=== PATIENT | female | born 2005 | race Caucasian/White ===

== ENCOUNTER → 2024-03-11 | Outpatient (CLI) | payer BC, OTHER, SELFPAY ==
[2024-03-11 16:53] LABS: Basophils % (Auto) 0 % (0-2.5); Eosinophils # (Auto) 0.2 Thou/mm3 (0.0-0.5); Eosinophils % (Auto) 2 % (0-10); Hematocrit 32.2 % (36.0-46.0); Hemoglobin 10.7 g/dL (12.0-16.0); Immature Granulocytes % (Auto) 2 % (0-0); Immature Granulocytes Auto 0.13 Thou/mm3 (0.00-0.00); Lymphocytes # (Auto) 1.6 Thou/mm3 (1.0-5.0); Lymphocytes % (Auto) 18 % (10-50); Mean Corpuscular HGB Conc 33.2 g/dl (31.0-37.0); Mean Corpuscular Hemoglobin 29.6 pg (25.0-35.0); Mean Corpuscular Volume 89 fL (80-100); Monocytes # (Auto) 0.5 Thou/mm3 (0.0-0.8); Monocytes % (Auto) 6 % (0-12); Neutrophils # (Auto) 6.4 Thou/mm3 (1.8-7.7); Neutrophils % (Auto) 72 % (37-80); Nucleated Red Blood Cell % 0 /100 WBC (0); Platelet Count 250 Thou/mm3 (140-440); RDW Standard Deviation 40.1 fL (36.4-46.3); Red Blood Count 3.61 Miln/mm3 (4.00-5.20); White Blood Count 8.9 Thou/mm3 (4.5-11.0)
[2024-03-11 17:22] LABS: Syphilis Nonreactive (Nonreactive)
== END | disposition home or self-care (01) ==
LOC: COPL 15:59
PROVIDERS: PCP Nurse Practitioner Family; Referring Provider Specialist; Visit Provider Specialist
DX: Z34.83 Encounter for supervision of other normal pregnancy, third trimester (principal)
CPT/HCPCS: 36415; 85025; 86780

== ENCOUNTER 2024-04-14 08:50 | Inpatient (IN) | payer OTHER, BC, SELFPAY ==
--- NOTE | 2024-04-09 09:02 | ESHP_ITS ---
RE: PAUL LAGUERRE : 2005 DATE OF ADMISSION: 04/14/2023 HISTORY OF PRESENT ILLNESS: This is a 18-year-old 1, para 0 with a due date of 04/19/2024 with intrauterine at 39 weeks and 2 days on 04/14/2024, who is admitted for induction of labor for gestational hypertension The patient began developing elevated blood pressures on 04/02/2024 and 24-hour urine collection showed 121 mg of protein consistent consistent with gestational HTN. The patient denies any headache, change in vision, or right upper quadrant pain. Her blood work is within normal limits. She reports normal movement. She denies any leaking or bleeding. She reports occasional contractions. Her was complicated by iron deficiency anemia. US today shows EFW 3500g. PAST MEDICAL HISTORY: Iron deficiency anemia. MEDICATIONS: 1. multivitamin 1 p.o. daily. 2. Ferrous sulfate 325 mg one p.o. b.i.d. SOCIAL HISTORY: She denies any alcohol, drug use, or smoking. FAMILY HISTORY: Denies. PAST SURGICAL HISTORY: Denies. REVIEW OF SYSTEMS: She denies any chest pain, palpitations, cough, fever, shortness of breath, or lower extremity pain. PHYSICAL EXAMINATION: VITAL SIGNS: Blood pressure 139/71, heart rate 78, respirations 18, temperature 98.2, weight 183 pounds. HEENT: Oropharynx and sclerae are clear. LUNGS: Clear to auscultation bilaterally. HEART: Regular rate and rhythm. ABDOMEN: Gravid, term size consistent with estimated weight 7.5 pounds. PELVIC: See RN notes. EXTREMITIES: Nontender. SKIN: No gross rashes or lesion. NEUROLOGIC: No focal deficits. ASSESSMENT AND PLAN: Intrauterine at 39 weeks and 2 days, gestational hypertension Induction of labor. Anticipate spontaneous vaginal delivery. Informed consent was obtained. The patient was made aware of the risks, complications, alternatives, and benefits of the proposed procedure and she agrees. She is aware of the risk of operative, vaginal delivery, and delivery and agrees with these modes of delivery if indicated. DT: 14:59:43 TT: 17:22:00 Ref: [id number] - TID: [id number] [facility]
[2024-04-14] VITALS (76 sets, daily range): BP systolic 0–139; BP diastolic 0–89; PULSE 69–194; RESP 16–18; TEMP 36.5–36.8; O2SAT 86–100; BMI 31.8
[2024-04-14 09:57] LABS: Collection Type, Urine Clean Catch
[2024-04-14 10:04] LABS: Basophils % (Auto) 0 % (0-2.5); Eosinophils # (Auto) 0.1 Thou/mm3 (0.0-0.5); Eosinophils % (Auto) 1 % (0-10); Hematocrit 30.3 % (36.0-46.0); Hemoglobin 10.2 g/dL (12.0-16.0); Immature Granulocytes % (Auto) 1 % (0-0); Immature Granulocytes Auto 0.08 Thou/mm3 (0.00-0.00); Lymphocytes # (Auto) 2.1 Thou/mm3 (1.0-5.0); Lymphocytes % (Auto) 25 % (10-50); Mean Corpuscular HGB Conc 33.7 g/dl (31.0-37.0); Mean Corpuscular Volume 86 fL (80-100); Monocytes # (Auto) 0.7 Thou/mm3 (0.0-0.8); Monocytes % (Auto) 8 % (0-12); Neutrophils # (Auto) 5.3 Thou/mm3 (1.8-7.7); Neutrophils % (Auto) 64 % (37-80); Nucleated Red Blood Cell % 0 /100 WBC (0); Platelet Count 289 Thou/mm3 (140-440); RDW Standard Deviation 39.6 fL (36.4-46.3); Red Blood Count 3.52 Miln/mm3 (4.00-5.20); White Blood Count 8.4 Thou/mm3 (4.5-11.0)
[2024-04-14 10:11] LABS: Bacteria,Urine Rare; Bilirubin,Urine Negative (Negative); Blood,Urine 1+ (Negative); Clarity,Urine Clear (Clear/Hazy); Color,Urine Lt-Yellow (Lt Yel-Yel); Glucose, Urine Negative (Negative); Ketones,Urine Negative (Negative); Leukocyte Esterase,Urine Negative (Negative); Nitrite,Urine Negative (Negative); PH,Urine 6.5 (5.0-7.0); Protein,Urine Trace (Neg - Trace); RBC,Urine 3 /hpf (0-3); Specific Gravity,Urine 1.022 (1.001-1.035); Squamous Epithelial Cell,Urine 5 /hpf (0-5); Urobilinogen,Urine Negative mg/dL (0.0-1.0); WBC,Urine 6 /hpf (0-5)
--- NOTE | 2024-04-14 10:29 | PD.LDPN ---
Documentation for date of: 04/14/24 OB Labor Progress Note Pain Control Comments: None Pelvic Exam Dilation (cm): 1 Effacement (%): thick station: -3 Amniotic membrane status: Intact Contractions Contraction frequency: irregular Status status: Category l Assessment and Plan Comments: Cervidil cervical ripening. Anticipate .
--- NOTE | 2024-04-14 10:37 | XR_ITS ---
Examination: Complete OB ultrasound greater than 14 weeks Date and time of exam: April 14, 2024 1056 hours INDICATIONS: Preop induction today, unknown presentation, unknown weight Findings: Viable intrauterine single fetus with single amniotic sac presentation Vertex Cardiac motion 152 BPM Placenta anterior right lateral grade 3 Umbilical cord insertion 3 vessel seen Amniotic fluid index 12.6 cm Cervix 2.3 cm Ovaries obscured by bowel gas. Composite estimated gestational age based on BPD, head circumference, abdominal circumference, femur length is 38 weeks 0 days Estimated weight 3543 g . Survey of intracranial anatomy, spinal anatomy, abdominal anatomy, four-chamber heart performed with no abnormalities identified. Impression: Viable intrauterine gestation vertex presentation Estimated gestational age 38 weeks 0 days Estimated weight 3543 g.
[2024-04-14 10:38] LABS: Fibrinogen 543 mg/dL (175-375); INR 0.9 (0.9-1.3); Partial Thromboplastin Time 23.5 Seconds (22.0-36.0); Prothrombin Time 9.6 Seconds (9.0-12.2)
[2024-04-14 10:43] LABS: Alanine Aminotransferase 8 U/L (10-49); Albumin/Globulin Ratio 1.5 (1.2-2.2); Alkaline Phosphatase 157 U/L (46-116); Anion Gap 9 (7-16); Aspartate Amino Transferase 17 U/L (0-34); BUN/Creatinine Ratio 17 Ratio (12-20); Bilirubin,Total 0.3 mg/dL (0.3-1.2); Blood Urea Nitrogen 10 mg/dL (9-23); Calcium 8.8 mg/dL (8.3-10.6); Calcium (Corrected) 8.8 mg/dL (8.5-10.1); Carbon Dioxide 21.7 mMol/L (20.0-31.0); Chloride 108 mMol/L (98-107); Creatinine (Component) 0.6 mg/dL (0.6-1.3); Estimated Creatinine Clearance 197.6 mL/min (>60); Globulin 2.7 gm/dL (2.3-3.5); Glucose 82 mg/dL (74-106); Osmolality,Calculated 275 (275-295); Potassium 3.8 mMol/L (3.4-5.1); Sodium 139 mMol/L (136-145); Total Protein 6.7 gm/dL (5.7-8.2); eGFR > 60 See Note
[2024-04-14 10:55] LABS: LDH (Lactate Dehydrogenase) 212 U/L (120-246); Uric Acid 3.7 mg/dL (3.1-7.8)
[2024-04-14] MEDS: DINOPROSTONE 10 MG VAG.SUPP VAGINAL (12:00)
[2024-04-14 16:59] LABS: Syphilis Nonreactive (Nonreactive)
[2024-04-14] MEDS: fentaNYL CIT INJ 50 mCg/ML AMP 2ML 100 MCG IV (23:25)
[2024-04-15] VITALS (255 sets, daily range): BP systolic 0–154; BP diastolic 0–118; PULSE 67–139; RESP 16–18; TEMP 36.1–37.3; O2SAT 67–100
--- NOTE | 2024-04-15 06:54 | PD.LDPN ---
Documentation for date of: 04/15/24 OB Labor Progress Note Pain Control Comments: Epidural Pelvic Exam Dilation (cm): 9 Effacement (%): 90 station: 0 Amniotic membrane status: Ruptured Comments: clear Contractions Contraction frequency: q3m Status status: Category l Comments: Baseline 110's Assessment and Plan Comments: Went into active labor with the Cervidil alone Anticipate
[2024-04-15] MEDS: RINGERS LACTATED 1000 ML 1,000 ML 100 ML IV (11:37)
[2024-04-15] MEDS: MINERAL OIL 30 ML UDC TOP (11:57)
[2024-04-15] MEDS: OXYTOCIN in NS 20 units 20 UNIT/1,000 ML BAG 125 UNIT IV (12:03)
[2024-04-15] MEDS: BENZO/LANO/ALOE (Dermoplast) 60 GM CAN 1 SPRAY TOP (12:27)
[2024-04-15] MEDS: IBUPROFEN TAB 400 MG TABLET 800 MG PO (12:30)
--- NOTE | 2024-04-15 14:45 | PD.LDDS ---
DS: Providers Provider Date of admission: 04/14/24 08:50 Primary care physician: Nixon Triana MD Admitting Provider: Morris Thurman MD Attending Provider on Admission: Morris Thurman MD Consults: 04/15/24 12:38 Referral Routine Comment: Attending Provider on DC: Morris Thurman MD Discharging Provider: Morris Thurman MD DS: Diagnosis Discharge Diagnosis (1) (normal spontaneous vaginal delivery): Status: Acute (2) Shoulder dystocia during labor and delivery: Status: Acute (3) Gestational hypertension: Status: Acute Problem List Completed Was Problem List Reviewed/Reconciled?: Yes Summary/Hosp Course Time Spent with Patient Time attestation: Total time spent providing and/or coordinating discharge services: Exam Vital Signs Temp Pulse Resp BP Pulse Ox 98.7 F 82 16 127/78 99 04/15/24 14:00 04/15/24 14:37 04/15/24 14:00 04/15/24 14:37 04/15/24 13:59 Discharge Plan Plan Patient Disposition: HOME (Self Care) Patient condition on transfer: Stable Prescriptions/Referrals Prescriptions/Med Rec: New ibuprofen 600 mg tablet 600 mg PO Q6H PRN (Reason: pain) Qty: 30 0RF Continued Classic 28 mg iron- 800 mcg tablet 1 tab PO 1XD Patient Comments: TAKE 1 TABLET BY MOUTH EVERY DAY Referrals: Nixon Triana MD [Primary Care Provider] - Patient/Caregiver Discharge Instructions Discharge Activity: activity as tolerated Other Discharge Activity Instructions:: Follow up office 6 weeks. Education Materials: After a Vaginal , Breast Care After , Incision Care After Vaginal , Nutrition While , Understanding Depression, : Caring for Yourself, Feel Healthy After Print Language: Tristanian Stand Alone Forms: [facility] Award Info., Patient Portal Info Letter Discharge Order Discharge Orders: Discharge (Routine); Ordered 04/16/24 Ordered By: Morris Thurman Planned Discharge Date 04/16/24
--- NOTE | 2024-04-15 14:47 | PD.LDDELS ---
Shoulder Dystocia General Time head delivered:: 11:58 Traction performed:: none at any time Maneuvers/Procedures Woody: Order Maneuver Performed:: 1 Time begun:: :58 Time ended:: Performed by:: Dayana RN and another RN suprapubic pressure: Order Maneuver Performed:: 2 Time begun:: 11:58 Time ended:: : Performed by:: Dayana RN and another RN Was fundal Pressure applied? Fundal pressure applied:: No Shoulder Under Symphisis at head delivery:: left Immediate Assessment Immediate assessment:: no apparent injury Surgical Team Notified Surgical team notified:: Yes Data (Pineda) Data Hx Section: No : 1 Para: 0 Term: 0 : 0 : 0 Delivery Data (Pineda) Labor Data ROM Date: 04/15/24 ROM Time: 06:13 Rupture Type: AROM Amniotic Fluid: Clear Delivery Data EDC: 04/19/24 EDC calculated by:: LMP/early US confirmation Labor Onset Stage 1 Date: 04/15/24 Labor Onset Stage 1 Time: 03:48 Labor Onset Stage 2 Date: 04/15/24 Labor Onset Stage 2 Time: 11:00 Delivery Date: 04/15/24 Delivery Time: 11:59 Gestational age (weeks): 39 Gestational age (days): 3 Placenta Delivery Date: 04/15/24 Placenta Delivery Time: 12:03 Delivered by: Morris Thurman Delivery nurse: Paula Gurrola Other staff at delivery: 2nd Nurse Other staff at delivery: Halle Hardy Delivery Method Delivery: Vaginal Delivery Type: Spontaneous Presentation: Vertex Position: OA Anesthesia Type Primary Anesthesia: Epidural Placenta Placenta Delivery: Spontaneous Placenta Cultures Obtained: No Placenta Sent for Examination: No Cord Sample: Cord Blood Obtained Lacerations #1: Perineal: 2nd degree EBL Estimated blood loss (ml): 250 Umbilical Cord Umbilical Vessels: 3 Nuchal Cord: None Additional Procedures None Complications Complications: Shoulder Dystocia Data (Pineda) Data Gender: Male Infant Weight Grams: 3470 1 Minute Total: 9 5 Minute Total: 9
[2024-04-15 19:06] LABS: Basophils % (Auto) 0 % (0-2.5); Eosinophils % (Auto) 0 % (0-10); Immature Granulocytes % (Auto) 1 % (0-0); Immature Granulocytes Auto 0.08 Thou/mm3 (0.00-0.00); Lymphocytes # (Auto) 1.3 Thou/mm3 (1.0-5.0); Lymphocytes % (Auto) 7 % (10-50); Mean Corpuscular HGB Conc 33.3 g/dl (31.0-37.0); Mean Corpuscular Hemoglobin 28.8 pg (25.0-35.0); Mean Corpuscular Volume 87 fL (80-100); Monocytes # (Auto) 1.1 Thou/mm3 (0.0-0.8); Monocytes % (Auto) 7 % (0-12); Neutrophils # (Auto) 14.5 Thou/mm3 (1.8-7.7); Neutrophils % (Auto) 85 % (37-80); Nucleated Red Blood Cell % 0 /100 WBC (0); Platelet Count 223 Thou/mm3 (140-440); RDW Standard Deviation 40.7 fL (36.4-46.3); Red Blood Count 3.12 Miln/mm3 (4.00-5.20); White Blood Count 16.9 Thou/mm3 (4.5-11.0)
[2024-04-15] MEDS: ACETAMINOPHEN 325 MG TABLET 650 MG PO (19:35)
[2024-04-16 00:15] VITALS: BP 114/72; PULSE 86; RESP 17; TEMP 36.9; O2SAT 97
[2024-04-16 04:12] VITALS: BP 121/68; PULSE 76; RESP 16; TEMP 36.7; O2SAT 99
--- NOTE | 2024-04-16 06:21 | ESPR_ITS ---
RE: PAUL LAGUERRE : 2005 DATE OF SERVICE: 04/16/2024 SUBJECTIVE: day #1, the patient denies any problem or complaint. She is voiding. She is ambulating. She is tolerating diet. She is passing flatus. She denies any excessive vaginal bleeding. She denies any dizziness or lightheadedness. She denies any chest pain, palpitations, shortness of breath, or lower extremity pain. OBJECTIVE: Vital Signs: Blood pressure 121/68, heart rate 76, respirations 16, temperature 98.1, pulse oximetry 99% on room air. Lungs: Clear to auscultation bilaterally. Heart: Regular rate and rhythm. Abdomen: Fundus is firm. Extremities: Nontender. LABORATORY DATA: Hemoglobin pre-delivery is 12.2, post-delivery is 9.0. ASSESSMENT: 1. day #1 status post spontaneous vaginal delivery. 2. Gestational hypertension with normal blood pressures. PLAN: Discharge home when baby is cleared. Discharge instructions were given. Follow up in the office in 6 weeks. DT: 05:37:28 TT: 06:20:00 Ref: [id number] - TID: [id number]
[2024-04-16] MEDS: ACETAMINOPHEN 325 MG TABLET 650 MG PO (07:30)
[2024-04-16 07:34] VITALS: BP 121/77; PULSE 89; RESP 20; TEMP 36.6; O2SAT 99
[2024-04-16 11:46] VITALS: BP 114/66; PULSE 77; RESP 18; TEMP 36.9; O2SAT 99
--- NOTE | 2024-04-16 13:55 | CHAP ---
09:30 AM Visited by spiritual care volunteer Provided Baby Bethany and prayer for Patient.
== END 2024-04-16 18:58 | disposition home or self-care (01) | DRG 807 ==
LOC: S4SX 04-15 12:50 → S4NX 04-15 15:54
PROVIDERS: Admitting Provider Specialist; PCP Family Medicine; Visit Provider Specialist
DX: O13.4 Gestational [pregnancy-induced] hypertension without significant proteinuria, complicating childbirth (principal); Z37.0 Single live birth; Z3A.39 39 weeks gestation of pregnancy; D50.9 Iron deficiency anemia, unspecified; O99.02 Anemia complicating childbirth; O66.0 Obstructed labor due to shoulder dystocia; O70.1 Second degree perineal laceration during delivery
CPT/HCPCS: 36415; 59409; 76805; 80053; 81001; 83615; 84550; 85025; 85384; 85610; 85730; 86780; 86850; 86900; 86901; 94762; J2590; J2795; J3010; J3490; J7120; A9270

== ENCOUNTER 2024-06-26 21:28 | Emergency (ER) | payer BC, OTHER, SELFPAY ==
[2024-06-26 21:28] VITALS: BMI 8034.2
[2024-06-26 21:55] VITALS: BP 107/69; PULSE 78; RESP 18; TEMP 36.6; O2SAT 99
--- NOTE | 2024-06-26 22:13 | PD.EDSKIN ---
ED Skin Abcess FB-RME/HPI General Chief complaint: Skin/Abscess/Foreign Body Stated complaint: RASH Time Seen by Provider: 06/26/24 21:50 Arrival date/time: 06/26/24 21:28 RME / HPI RME / HPI narrative: 18-year-old female patient with history of eczema in the past, came in for evaluation regarding erythematous rashes scattered all over, onset of symptoms earlier today. Severity of symptoms moderate with itchiness. Patient is worried that it could be ringworm. Patient denies any difficulty swallowing or shortness of breath. Denies any ill contacts denies any other complaints. Related Data Home Medications ?Medication ?Instructions ?Recorded ?Confirmed vits no.126-ferrous fum 1 tab PO 1XD 04/14/24 04/14/24 28 mg iron-folic acid 800 mcg tablet (Classic ) Previous Rx's ?Medication ?Instructions ?Recorded ibuprofen 600 mg tablet 600 mg PO Q6H PRN pain #30 tabs 04/16/24 diphenhydramine HCl 25 mg capsule 25 mg PO TID PRN allergic reaction 06/26/24 (Benadryl) #20 caps Allergies Allergy/AdvReac Type Severity Reaction Status Date / Time cat dander Allergy Verified 06/26/24 21:30 Review of Systems Review of Systems Narrative Review of Systems: Review of system reviewed and within normal limits except mentioned in HPI ED Exam Narrative Physical exam: VITAL SIGNS: Reviewed. GENERAL APPEARANCE: Alert and interactive, follows commands, no acute distress, HEAD AND FACE: Non-traumatic. ENT: PERRL, pink conjunctivitis, eyelid no trauma, Mucous membrane moist. NECK: Supple, nontender, no nuchal rigidity. CHEST: No tenderness, no crepitus, no paradoxical movement, no retractions. LUNGS: Clear, well ventilated, symmetric, no rales, no wheezing, no ronchi, no stridor, good breath sounds bilaterally. HEART: Regular rate, regular rhythm, no murmur, no gallops. ABDOMEN: Soft, positive bowel sounds, nondistended, no guarding, nontender, no rebound, no masses, RECTAL: Deferred. GENITAL: Deferred. NEUROLOGICAL: Gross motor function intact sensory function intact, Appropriate for age. MUSCULOSKELETAL: low back nontender, full range of motion. EXTREMITIES: Nontender, full range of motion. SKIN: Color pink, dry, multiple irregular shaped erythematous rashes scattered all over, no lacerations, no abrasions, no contusions. LYMPHATICS: Deferred. Course Quality Measures none Orders Category Date Time Status DiphenhydrAMINE [Benadryl] Med 06/26/24 22:08 Discontinued 50 mg PO X1 ONE Famotidine [Pepcid] Med 06/26/24 22:08 Discontinued 40 mg PO X1 ONE predniSONE Med 06/26/24 22:08 Discontinued 60 mg PO X1 ONE Vital Signs Vital signs: Vital Signs Temperature 97.9 F 06/26/24 21:55 Pulse Rate 78 06/26/24 21:55 Respiratory Rate 18 06/26/24 21:55 Blood Pressure 107/69 06/26/24 21:55 Pulse Oximetry (%) 99 06/26/24 21:55 Oxygen Delivery Method Room Air 06/26/24 21:55 Skin / Abscess / Foreign Body MDM Narrative MDM Narrative:: 18-year-old female patient with history of eczema in the past, came in for evaluation regarding erythematous rashes scattered all over, onset of symptoms earlier today. Severity of symptoms moderate with itchiness. Patient is worried that it could be ringworm. Patient denies any difficulty swallowing or shortness of breath. Denies any ill contacts denies any other complaints. Patient received prednisone, Benadryl and Pepcid with significant forward symptoms Patient data External records reviewed:: None Clinical information provided by:: none Social determinants that could affect healthcare access:: none Patient has the following chronic illnesses:: None How is presenting disease/condition affected by chronic disease/condition?: no chronic disease Evaluation data The following diagnostics were reviewed and interpreted by me:: other (specify) Lab and/or radiology exams considered but not ordered:: None Interpretation Summary: None Medications / Prescriptions Medications or Prescriptions considered but not ordered:: None Medication administrations:: Medication Administration History Discontinued Medications Diphenhydramine HCl (Diphenhydramine 25 Mg Capsule) 50 mg PO X1 ONE Stop: 06/26/24 22:09 Last Admin: 06/26/24 22:23 Dose: 50 mg Documented By: Famotidine (Famotidine 20 Mg Tablet) 40 mg PO X1 ONE Stop: 06/26/24 22:09 Last Admin: 06/26/24 22:23 Dose: 40 mg Documented By: Prednisone (Prednisone 20 Mg Tablet) 60 mg PO X1 ONE Stop: 06/26/24 22:09 Last Admin: 06/26/24 22:22 Dose: 60 mg Documented By: Prednisone Pepcid and Benadryl Consultations Consultation(s) initiated? (list below): No Diagnosis Skin/Abscess Differential Diagnosis: viral exanthem, urticaria and other (Allergic reaction) Most likely diagnosis given after review of the tests above:: Allergic rash Admission Indicated Admission indicated?: not indicated Admission Request Was there a request for admission?: No Disposition Plan Disposition Plan: Discharge Discharge Attestation Discharge Attestation: The patient and all family members were given an opportunity to ask questions and understood the discharge instructions. Discharge instructions specifically effects, indications for sooner follow up or return to the emergency department, and the expected course of current diagnosis. Patient condition: Stable Discharge Plan Plan Patient Disposition: HOME (Self Care) Disposition Comment: stable Prescriptions/Referrals Prescriptions/Med Rec: New diphenhydramine HCl [Benadryl] 25 mg capsule 25 mg PO TID PRN (Reason: allergic reaction) Qty: 20 0RF No Action Classic 28 mg iron- 800 mcg tablet 1 tab PO 1XD Patient Comments: TAKE 1 TABLET BY MOUTH EVERY DAY ibuprofen 600 mg tablet 600 mg PO Q6H PRN (Reason: pain) Qty: 30 0RF Problem List Clinical Impression: Allergic reaction Patient/Caregiver Discharge Instructions Discharge Activity: activity as tolerated Education Materials: Benadryl Oral Capsule 25 mg Additional Instructions: Thank you for the opportunity for serving you today. You are stable for discharged . You are advised to: Follow-up with your PCP in 1 to 2 days and asked for referral to allergologist Return to ED for worsening of symptoms Increase oral fluids Take medication as prescribed Print Language: Uruguayan Stand Alone Forms: [facility] Award Info., Patient Portal Info Letter SAMARIA/SURY Supervising Physician SAMARIA/SURY Supervising Physician: MD Nelli
[2024-06-26] MEDS: predniSONE 20 MG TABLET 60 MG PO (22:22)
[2024-06-26] MEDS: DiphenhydrAMINE 25 MG CAPSULE 50 MG PO (22:23)
[2024-06-26] MEDS: FAMOTIDINE 20 MG TABLET 40 MG PO (22:23)
== END 2024-06-26 23:00 | disposition home or self-care (01) ==
LOC: SERX 22:46
PROVIDERS: Emergency Provider Emergency Medicine
DX: R21 Rash and other nonspecific skin eruption (principal); L53.9 Erythematous condition, unspecified
CPT/HCPCS: 99282; J7512; A9270

== ENCOUNTER 2024-06-29 02:51 | Emergency (ER) | payer BC, OTHER, SELFPAY ==
[2024-06-29 03:03] VITALS: BP 105/65; PULSE 69; RESP 16; TEMP 36.6; O2SAT 98
--- NOTE | 2024-06-29 03:12 | PD.EDSKIN ---
ED Skin Abcess FB-RME/HPI General Chief complaint: Skin/Abscess/Foreign Body Stated complaint: Broke out in Rash Time Seen by Provider: 06/29/24 03:03 Source: patient and family Arrival date/time: 06/29/24 02:51 Mode of arrival: ambulatory Limitations: no limitations RME / HPI RME / HPI narrative: 18-year-old female with past medical history of eczema presents for evaluation of a scattered rash to bilateral upper extremities and posterior trunk x 12 hours. Patient reports gradual progression of lesions and describes them as pruritic. She denies shortness of breath, fever, chest pain, wheezing, nausea, vomiting. She denies recent change in detergent, new food exposure, new topical exposure. Patient notes that she has a infant at home and is concerned the rash will transfer to prior. Patient denies known insect infestation. MD complaint: rash Onset (ago): hour(s) Location: chest, back, LUE and RUE Quality: pruritic Context: none Associated symptoms: denies other symptoms Treatments prior to arrival: none Related Data Home Medications ?Medication ?Instructions ?Recorded ?Confirmed vits no.126-ferrous fum 1 tab PO 1XD 04/14/24 04/14/24 28 mg iron-folic acid 800 mcg tablet (Classic ) Previous Rx's ?Medication ?Instructions ?Recorded ibuprofen 600 mg tablet 600 mg PO Q6H PRN pain #30 tabs 04/16/24 diphenhydramine HCl 25 mg capsule 25 mg PO TID PRN allergic reaction 06/26/24 (Benadryl) #20 caps diphenhydramine HCl 25 mg capsule 25 mg PO TID PRN itching #20 caps 06/29/24 (Benadryl) famotidine 20 mg tablet (Pepcid) 20 mg PO QDAY #14 tabs 06/29/24 methylprednisolone 4 mg tablets in 4 mg PO QDAY #21 tabs 06/29/24 a dose pack (Medrol ([place])) Allergies Allergy/AdvReac Type Severity Reaction Status Date / Time cat dander Allergy Verified 06/26/24 21:30 Review of Systems Constitutional Constitutional: Denies body ache(s), Denies chills, Denies fever(s) and Denies headache(s) ENT Ears, Nose, Mouth, and Throat: Denies dizziness, Denies dysphagia, Denies headache(s), Denies lip swelling, Denies neck pain and Denies throat swelling Cardiovascular Cardiovascular: Denies chest pain and Denies dyspnea Respiratory Respiratory: Denies cough, Denies dyspnea, Denies stridor and Denies wheezing Gastrointestinal Gastrointestinal: Denies dysphagia, Denies nausea and Denies vomiting Musculoskeletal Musculoskeletal: Denies back pain and Denies neck pain Integumentary/Breasts Skin/Breast: Reports lesions and Reports rash Neurologic Neurologic: Denies dizziness and Denies headache(s) Allergic/Immunologic Allergic/Immunologic: Denies lip swelling, Denies throat swelling and Denies wheezing Past Medical History Past Medical History NEUROLOGIC: Negative Neurological Disorders CARDIAC: Positive Cardiac Disorders and Hypertension; Negative Myocardial Infarction, Cardiac Arrhythmia, Atrial Fibrillation, Angina, Heart Murmur, Coronary Artery Disease, Atherosclerotic Heart Disease, Peripheral Vascular Disease, Hypercholesterolemia, Aneurysm, Congestive Heart Failure, Congenital Heart Disease, Valvular Heart Disease, Rheumatic Fever, Cardiomyopathy, Edema, Pericarditis, Cellulitis, Deep Vein Thrombosis, Hypotension or Varicose Veins RESPIRATORY: Negative Chronic Obstructive Pulmonary Disease (COPD) GASTROINTESTINAL: Negative Gastrointestinal Disorders, Hepatitis or Colorectal Cancer GENITOURINARY: Negative Genitourinary Disorders, Renal Disease or Prostate Cancer REPRODUCTIVE: Negative Breast Cancer, Endometriosis, Pelvic Inflammatory Disease, Previous Pregnancies, Testicular Cancer or Uterine Prolapse MUSCULOSKELETAL: Negative Musculoskeletal Disorders, Bone Cancer or Carpal Tunnel Syndrome ENT: Negative Cataracts ENDOCRINE: Negative Endocrine Disorders, Diabetes Mellitus Type 1 or Diabetes Mellitus Type 2 HEMATOLOGIC: Positive Blood Disorders and Anemia; Negative Leukemia, Hemophilia, Thalassemia, Sickle Cell Disease or Clotting Problems OTHER HISTORY: Negative Hospitalization, Autoimmune Disease, Down Syndrome, Developmental Delay, Shingles, Falls, Blood Transfusions, Blood Transfusion Reaction, Anesthesia Reactions, Organ Transplant, Chemotherapy, Radiation Therapy, Hyperbaric Therapy, MRSA, VRSA, Vancomycin-Resistant Enterococci, Human Immunodeficiency Virus (HIV), Chicken Pox, Measles, Mumps, Rubella ([place]ian Measles), Pertussis, Clostridium Difficile, Cancer, Breast Cancer, Cervical Cancer, Colorectal Cancer, Lung Cancer, Ovarian Cancer, Prostate Cancer or Testicular Cancer Family History FAMILY HISTORY: Negative Family Psychiatric Problems, Family Respiratory Disorders, Family Cardiac Disorders, Family Gastrointestinal Problems, Family Cancer, Family Surgery or Family Anesthesia Reaction Surgical History SURGICAL: Negative Cardiac Surgery, Open Heart Surgery, Coronary Artery Bypass Graft, Valve Replacement, Vascular Surgery, Coronary Stent, Cardiac Catheterization, Pacemaker, Angiogram, Auto Implanted Cardiovert Defib, Carotid Endarterectomy, Endocrine Surgery, Thyroidectomy, Ear Surgery, Tympanostomy Tube, Eye Surgery, Nose Surgery, Oral Surgery, Tonsillectomy, Adenoidectomy, Cochlear Implant, Corneal Transplant, Throat Surgery, Abdominal Surgery, Tracheostomy, Gastric Bypass Surgery, Gastrostomy, Bowel Surgery, Nephrectomy, Transurethral Resection, Joint Replacement, Amputation, Open Reduction Internal Fixation, Arthroscopy, Neurologic Surgery, Brain Shunt, Mastectomy, Lumpectomy, Hysterectomy, Tubal Ligation, Section, Vasectomy or Organ Transplant Social History SMOKING STATUS: Never smoker ED Exam General Limitations: Present no limitations General appearance: Present alert and in no apparent distress Head Head exam: Present atraumatic and normocephalic Eye Eye exam: Present normal appearance and EOMI ENT ENT exam: Present normal oropharynx and mucous membranes moist Expanded ENT Exam Mouth exam: Present tongue normal; Absent lip swelling Neck Neck exam: Present normal inspection and full ROM; Absent meningismus Chest Chest inspection: Present normal inspection and symmetric chest wall rise Respiratory Respiratory exam: Present normal lung sounds bilaterally; Absent respiratory distress, wheezes or stridor Cardiovascular Cardiovascular exam: Present regular rate and +S1 Abdominal Exam Abdominal exam: Present soft; Absent distention or tenderness Extremities Exam Extremities exam: Present normal inspection and full ROM Back Exam Back exam: Present normal inspection and full ROM Neurological Exam Neurological exam: Present alert Psychiatric Psychiatric exam: Present normal affect Skin Skin exam: Present rash (Scattered, raised, erythematous macules to left axillary region and left posterior trunk.) Course Quality Measures none Orders Category Date Time Status DiphenhydrAMINE [Benadryl] Med 06/29/24 03:11 Discontinued 50 mg PO X1 ONE Famotidine [Pepcid] Med 06/29/24 03:11 Discontinued 40 mg PO X1 ONE predniSONE Med 06/29/24 03:11 Discontinued 20 mg PO X1 ONE Vital Signs Vital signs: Vital Signs Temperature 97.9 F 06/29/24 03:03 Pulse Rate 69 06/29/24 03:03 Respiratory Rate 16 06/29/24 03:03 Blood Pressure 105/65 06/29/24 03:03 Pulse Oximetry (%) 98 06/29/24 03:03 Oxygen Delivery Method Room Air 06/29/24 03:03 Pulse ox 90% on room air, within normal limits. Skin / Abscess / Foreign Body MDM Narrative MDM Narrative:: 18-year-old female presented with acute onset lesions to her trunk and axillary region. Vital signs reassuring. No systemic symptoms, no angioedema which points away from anaphylactic reaction. Patient denied recent change in topical exposures therefore unlikely contact dermatitis. Possibly allergic reaction to unknown exposure. Patient was treated with steroids and antihistamines in the department and discharged on a short course of steroids and antihistamines. Patient agreeable with plan to follow-up with primary care for further evaluation and treatment. Patient stable at time of discharge. Patient data External records reviewed:: [facility] previous records Clinical information provided by:: patient Social determinants that could affect healthcare access:: none Patient has the following chronic illnesses:: Eczema. How is presenting disease/condition affected by chronic disease/condition?: exacerbated by Evaluation data The following diagnostics were reviewed and interpreted by me:: other (specify) Lab and/or radiology exams considered but not ordered:: Considered not ordered. Interpretation Summary: Considered not ordered. Medications / Prescriptions Medications or Prescriptions considered but not ordered:: Rx given. Medication administrations:: Medication Administration History Discontinued Medications Diphenhydramine HCl (Diphenhydramine 25 Mg Capsule) 50 mg PO X1 ONE Stop: 06/29/24 03:12 Last Admin: 06/29/24 03:31 Dose: 50 mg Documented By: CVL Famotidine (Famotidine 20 Mg Tablet) 40 mg PO X1 ONE Stop: 06/29/24 03:12 Last Admin: 06/29/24 03:32 Dose: 40 mg Documented By: CVL Prednisone (Prednisone 20 Mg Tablet) 20 mg PO X1 ONE Stop: 06/29/24 03:12 Last Admin: 06/29/24 03:32 Dose: 20 mg Documented By: CVL Rx given. Consultations Consultation(s) initiated? (list below): No Diagnosis Skin/Abscess Differential Diagnosis: abscess of skin or subcutaneous tissue, urticaria, allergic reaction to drug, cellulitis, eczema, insect bites, impetigo, contact dermatitis and other Most likely diagnosis given after review of the tests above:: Allergic reaction. Admission Indicated Admission indicated?: not indicated Admission Request Was there a request for admission?: No Disposition Plan Disposition Plan: Discharge Discharge Attestation Discharge Attestation: The patient and all family members were given an opportunity to ask questions and understood the discharge instructions. Discharge instructions specifically effects, indications for sooner follow up or return to the emergency department, and the expected course of current diagnosis. Patient condition: Stable Discharge Plan Plan Patient Disposition: HOME (Self Care) Disposition Comment: Stable Prescriptions/Referrals Prescriptions/Med Rec: New methylprednisolone [Medrol ([place])] 4 mg tablets,dose pack 4 mg PO QDAY Qty: 21 0RF famotidine [Pepcid] 20 mg tablet 20 mg PO QDAY Qty: 14 0RF diphenhydramine HCl [Benadryl] 25 mg capsule 25 mg PO TID PRN (Reason: itching) Qty: 20 0RF No Action Classic 28 mg iron- 800 mcg tablet 1 tab PO 1XD Patient Comments: TAKE 1 TABLET BY MOUTH EVERY DAY ibuprofen 600 mg tablet 600 mg PO Q6H PRN (Reason: pain) Qty: 30 0RF diphenhydramine HCl [Benadryl] 25 mg capsule 25 mg PO TID PRN (Reason: allergic reaction) Qty: 20 0RF Problem List Clinical Impression: Allergic reaction Patient/Caregiver Discharge Instructions Other Activity Instructions:: Take Medrol Dosepak as instructed. Take Benadryl as needed for itching. Take famotidine daily for the next time 7 days. Continue to monitor for change in topical exposures. Follow-up with primary care doctor within the week for reevaluation. Return to the ED if your symptoms worsen or change. Education Materials: ED Medicine Reaction: Allergic Print Language: Slovenian Stand Alone Forms: [facility] Award Info., Patient Portal Info Letter PA/MOUTHPIECE MAKER Supervising Physician PA/MOUTHPIECE MAKER Supervising Physician: Dr. Aiken
[2024-06-29] MEDS: DiphenhydrAMINE 25 MG CAPSULE 50 MG PO (03:31)
[2024-06-29] MEDS: FAMOTIDINE 20 MG TABLET 40 MG PO (03:32)
[2024-06-29] MEDS: predniSONE 20 MG TABLET PO (03:32)
--- NOTE | 2024-06-29 03:40 | PC.NURSE ---
AFTER GIVING MEDS, I INFORMED PT TO WAIT IF MED IS GONNA WORK BUT PT LEFT WITOUT INSTRUCTION.
== END 2024-06-29 03:41 | disposition home or self-care (01) ==
PROVIDERS: Emergency Provider Emergency Medicine; PCP Nurse Practitioner Family
DX: T78.40XA Allergy, unspecified, initial encounter (principal); R21 Rash and other nonspecific skin eruption
CPT/HCPCS: 99282; J7512; A9270